=== PATIENT | male | born 1985 | race Hispanic/Latino ===

== ENCOUNTER 2018-04-05 01:44 | Emergency (ER) | payer SELFPAY ==
[2018-04-05] MEDS ORDERED: Adacel (T-DAP) 0.5 ML VIAL ONE ×2 (02:33→03:08)
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
== END 2018-04-05 04:11 | disposition home or self-care (01) ==
LOC: ERS 01:44
DX: S01.01XA Laceration without foreign body of scalp, initial encounter (principal); Y04.0XXA Assault by unarmed brawl or fight, initial encounter
CPT/HCPCS: 12002; 70450; 72125; 90471; 90715

== ENCOUNTER 2018-04-19 19:09 | Emergency (ER) | payer SELFPAY | END 2018-04-19 20:40 | disposition home or self-care (01) | LOC: ERS 19:09 | DX: S01.01XD Laceration without foreign body of scalp, subsequent encounter (principal); X58.XXXD Exposure to other specified factors, subsequent encounter ==